=== PATIENT | female | born 1955 | race Asian ===

== ENCOUNTER 2017-09-07 00:53 | Emergency (ER) | payer MEDICAID ==
[~2017-09-07] VITALS: Ht 167.6 cm; Wt 61.4 kg
[2017-09-07] MEDS ORDERED: ACETAMINOPHEN 325 MG TABLET PO ONE (02:30)
[2017-09-07 02:52] VITALS: BP 123/64
== END 2017-09-07 03:52 | disposition home or self-care (01) ==
LOC: EMS 00:56
DX: R51 Headache (principal); G91.9 Hydrocephalus, unspecified; Z98.2 Presence of cerebrospinal fluid drainage device
CPT/HCPCS: 70450; 99284